=== PATIENT | female | born 1965 | race Caucasian/White ===

== ENCOUNTER → 2020-04-01 | Outpatient (CLI) | payer BC | END | disposition home or self-care (01) | LOC: CFH 07:18 → EDSTATUS 07:30 | PROVIDERS: ATTEND Nurse Practitioner Family | DX: Z12.31 Encounter for screening mammogram for malignant neoplasm of breast (principal) | CPT/HCPCS: 77063; 77067 ==

== ENCOUNTER 2020-04-21 01:27 | Emergency (ER) | payer BC, MEDICAID ==
[~2020-04-21] VITALS: Ht 162.6 cm; Wt 51.9 kg
[2020-04-21 02:12] LABS: BASOPHILS # (AUTO) 0.07 x10^3/uL (0-0.1); BASOPHILS % (AUTO) 1 % (0-1); EOSINOPHILS # (AUTO) 0.16 x10^3/uL (0-0.4); EOSINOPHILS % (AUTO) 2 % (1-7); LYMPHOCYTES # (AUTO) 1.08 x10^3/uL (1-3.4); LYMPHOCYTES % (AUTO) 11 % (22-44); MD NO; MEAN CORPUSCULAR HEMOGLOBIN 30.9 pg (27.0-34.8); MEAN CORPUSCULAR HGB CONC 32.8 g/dL (32.4-35.8); MEAN CORPUSCULAR VOLUME 94.4 fL (80-100); MEAN PLATELET VOLUME 7.2 fL (7.4-10.4); MONOCYTES # (AUTO) 0.59 x10^3/uL (0.2-0.8); MONOCYTES % (AUTO) 6 % (2-9); NEUTROPHILS % (AUTO) 81 % (42-75); PLATELET COUNT 319 x10^3/uL (130-400); RED BLOOD COUNT 3.73 x10^6/uL (3.82-5.3); RED CELL DISTRIBUTION WIDTH 14.8 % (9.6-15.2)
[2020-04-21 02:21] LABS: INTERNATIONAL NORMALIZED RATIO 0.93 (0.93-1.1); PROTHROMBIN TIME 9.8 Seconds (9.6-11.5)
[2020-04-21 02:24] LABS: ALANINE AMINOTRANSFERASE 30 U/L (12-78); ALBUMIN 3.1 g/dL (3.4-5.0); ANION GAP 7 mmol/L (5-15); CALCIUM 8.6 mg/dL (8.5-10.1); CHLORIDE 114 mmol/L (98-107); CREATININE 0.91 mg/dL (0.55-1.02)
[2020-04-21 02:26] LABS: ALKALINE PHOSPHATASE 72 U/L (45-117); BILIRUBIN,TOTAL 0.1 mg/dL (0.2-1.0); TOTAL PROTEIN 5.8 g/dL (6.4-8.2)
--- NOTE | 2020-04-21 02:53 | NUR ---
PT UP TO BATHROOM WITH STEADY GAIT. SCANT AMOUNT OF BRIGHT RED BLOOD ON TOILET PAPER. PT DENIES N/V/D.
[2020-04-21 02:54] VITALS: BP 100/68
== END 2020-04-21 03:35 ==
LOC: ED 01:41
DX: K92.1 Melena (principal); I51.7 Cardiomegaly; Z87.891 Personal history of nicotine dependence
CPT/HCPCS: 36415; 80053; 85025; 85610; 86850; 86900; 93005; 99284

== ENCOUNTER 2020-05-02 08:55 | Emergency (ER) | payer BC, MEDICAID ==
[~2020-05-02] VITALS: Ht 162.6 cm; Wt 52.5 kg
[2020-05-02] MEDS ORDERED: HYDR50TA99 PO (09:11)
[2020-05-02] MEDS ORDERED: ESCI20TA PO (09:11)
--- NOTE | 2020-05-02 09:11 | NUR ---
54 Y/O FEMALE BIB AMBULANCE WITH C/O N/V PER PT "I WENT ON A WALK AND THEN GOT HOME AND WAS SWEATING. I WENT TO THE BATHROOM AND HAD DIARRHEA. I ALSO THREW UP AND FELT LIKE I WAS GOING TO PASS OUT. THIS HAS HAPPEND BEFORE. I WAS SCARED AND I CALLED. THE LAST TIME I ENDED UP IN THE HOSPITAL FOR A MONTH AND A HALF. BUT THEY ALSO SAID IT WAS FROM ALCOHOL. I HAVEN'T THROWN UP OR HAD DIARRHEA SINCE." PT PLACED ON CONT PULSE OX,NIBP. NO C/O CP, SOB, TRAUMA, SYNCOPE. PER REPORT, PIV ESTABLISHED. 250 ML NS AND 4MG ZOFRAN ADMINISTERED. NAD.
[2020-05-02 10:07] LABS: ALANINE AMINOTRANSFERASE 41 U/L (12-78); ALBUMIN 3.8 g/dL (3.4-5.0); CALCIUM 9.2 mg/dL (8.5-10.1); CREATININE 0.87 mg/dL (0.55-1.02)
[2020-05-02 10:11] LABS: BASOPHILS # (AUTO) 0.03 x10^3/uL (0-0.1); BASOPHILS % (AUTO) 0 % (0-1); EOSINOPHILS # (AUTO) 0.12 x10^3/uL (0-0.4); EOSINOPHILS % (AUTO) 2 % (1-7); LYMPHOCYTES # (AUTO) 0.96 x10^3/uL (1-3.4); LYMPHOCYTES % (AUTO) 12 % (22-44); MD NO; MEAN CORPUSCULAR HEMOGLOBIN 31.3 pg (27.0-34.8); MEAN CORPUSCULAR HGB CONC 33.4 g/dL (32.4-35.8); MEAN CORPUSCULAR VOLUME 93.7 fL (80-100); MEAN PLATELET VOLUME 7.4 fL (7.4-10.4); MONOCYTES # (AUTO) 0.45 x10^3/uL (0.2-0.8); MONOCYTES % (AUTO) 6 % (2-9); NEUTROPHILS % (AUTO) 80 % (42-75); PLATELET COUNT 412 x10^3/uL (130-400); RED BLOOD COUNT 4.23 x10^6/uL (3.82-5.3); RED CELL DISTRIBUTION WIDTH 14.7 % (9.6-15.2)
[2020-05-02 10:18] LABS: ALKALINE PHOSPHATASE 49 U/L (45-117); BILIRUBIN,TOTAL 0.3 mg/dL (0.2-1.0); TOTAL PROTEIN 7.2 g/dL (6.4-8.2)
[2020-05-02 10:19] LABS: ANION GAP 6 mmol/L (5-15); CHLORIDE 107 mmol/L (98-107)
--- NOTE | 2020-05-02 11:18 | NUR ---
PT AMBULATORY WITH STEADY GAIT TO BATHROOM.
--- NOTE | 2020-05-02 11:27 | NUR ---
Patient/Caregiver given discharge instructions and they have confirmed that they understand the instructions. Patient ambulatory with steady gait. PT LEFT WITH ALL PERSONAL BELONGINGS.
[2020-05-02 11:28] VITALS: BP 108/70
== END 2020-05-02 11:30 | disposition home or self-care (01) ==
LOC: ED 10:08
DX: R11.2 Nausea with vomiting, unspecified (principal); R19.7 Diarrhea, unspecified; R10.9 Unspecified abdominal pain; R42 Dizziness and giddiness
CPT/HCPCS: 36415; 74021; 80053; 85025; 99284

== ENCOUNTER 2020-06-08 20:44 | Emergency (ER) | payer BC, MEDICAID ==
[~2020-06-08] VITALS: Ht 172.7 cm; Wt 68.2 kg
[~2020-06-08 20:44] MED LIST: ESCI20TA PO; HYDR50TA99 PO
--- NOTE | 2020-06-08 22:02 | NUR ---
PT. ABILIO FROM LOBBY TO ED ROOM 2 AT THIS TIME.
--- NOTE | 2020-06-08 22:12 | NUR ---
RICARDO (FATHER) WOULD LIKE CALL FOR DISPO.
[2020-06-08 22:53] LABS: BASOPHILS # (AUTO) 0.03 x10^3/uL (0-0.1); BASOPHILS % (AUTO) 1 % (0-1); EOSINOPHILS # (AUTO) 0.21 x10^3/uL (0-0.4); EOSINOPHILS % (AUTO) 4 % (1-7); LYMPHOCYTES # (AUTO) 1.64 x10^3/uL (1-3.4); LYMPHOCYTES % (AUTO) 35 % (22-44); MD NO; MEAN CORPUSCULAR HEMOGLOBIN 31.3 pg (27.0-34.8); MEAN CORPUSCULAR HGB CONC 33.3 g/dL (32.4-35.8); MEAN CORPUSCULAR VOLUME 93.9 fL (80-100); MEAN PLATELET VOLUME 6.9 fL (7.4-10.4); MONOCYTES # (AUTO) 0.52 x10^3/uL (0.2-0.8); MONOCYTES % (AUTO) 11 % (2-9); NEUTROPHILS # (AUTO) 2.36 x10^3/uL (1.8-6.8); NEUTROPHILS % (AUTO) 49 % (42-75); PLATELET COUNT 341 x10^3/uL (130-400); RED BLOOD COUNT 4.17 x10^6/uL (3.82-5.3); RED CELL DISTRIBUTION WIDTH 14.7 % (9.6-15.2)
[2020-06-08 22:58] LABS: ALANINE AMINOTRANSFERASE 36 U/L (12-78); ALBUMIN 2.9 g/dL (3.4-5.0); ANION GAP 5 mmol/L (5-15); CALCIUM 7.9 mg/dL (8.5-10.1); CHLORIDE 112 mmol/L (98-107); CREATININE 0.64 mg/dL (0.55-1.02)
[2020-06-08 23:01] LABS: ALKALINE PHOSPHATASE 68 U/L (45-117); BILIRUBIN,TOTAL 0.2 mg/dL (0.2-1.0); TOTAL PROTEIN 6.2 g/dL (6.4-8.2)
[2020-06-08 23:23] LABS: MICROSCOPIC NOT IND
[2020-06-08 23:53] VITALS: BP 106/68
== END 2020-06-09 00:06 | disposition home or self-care (01) ==
LOC: ED 23:00
DX: F10.120 Alcohol abuse with intoxication, uncomplicated (principal); Y90.9 Presence of alcohol in blood, level not specified
CPT/HCPCS: 36415; 80053; 81003; 85025; 99283

== ENCOUNTER 2020-06-10 07:26 | Emergency (ER) | payer BC, MEDICAID ==
[~2020-06-10] VITALS: Ht 162.6 cm; Wt 58.3 kg
[2020-06-10 07:29] VITALS: BP 117/93
--- NOTE | 2020-06-10 07:50 | NUR ---
PATIENT COMES IN TODAY WITH CHIEF C/O ARGUELLO. PATIENT STATES SHE FELL SATURDAY AND HAS HAD A HAD EVER SINCE, BUT ARGUELLO IS WORSE TODAY. PATIENT REPORTS LAST DRINK THIS MORNING AROUND 0400. 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
[2020-06-10] MEDS ORDERED: LORazepam 1MG TABLET PO ONE (08:00)
[2020-06-10] MEDS ORDERED: LORazepam 1MG TABLET ONE (08:16)
--- NOTE | 2020-06-10 08:19 | NUR ---
PATIENT TO CT.
--- NOTE | 2020-06-10 08:34 | NUR ---
STEADY AMBULATION TO BATHROOM. BACK RESTING IN BED. ER WILLY REBOLLEDO AT [facility] TO DISCUSS POC.
--- NOTE | 2020-06-10 08:35 | NUR ---
DC INSTRUCTIONS REVIEWED
== END 2020-06-10 08:51 | disposition home or self-care (01) ==
LOC: ED 08:09
DX: F10.129 Alcohol abuse with intoxication, unspecified (principal); R51 Headache; W01.0XXA Fall on same level from slipping, tripping and stumbling without subsequent striking against object, initial encounter; Y93.89 Activity, other specified; Y92.89 Other specified places as the place of occurrence of the external cause; Y99.8 Other external cause status; Y90.9 Presence of alcohol in blood, level not specified
CPT/HCPCS: 70450; 99284

== ENCOUNTER 2020-06-15 05:08 | Emergency (ER) | payer BC, MEDICAID ==
[~2020-06-15] VITALS: Ht 162.6 cm; Wt 56.8 kg
[2020-06-15] MEDS ORDERED: LORazepam 1MG TABLET PO ONE (05:30)
[2020-06-15] MEDS ORDERED: ONDANSETRON ODT 4 MG ONE (05:48)
[2020-06-15] MEDS ORDERED: LORazepam 1MG TABLET ONE (05:48)
[2020-06-15] MEDS ORDERED: ONDANSETRON ODT 4 MG PO ONE (06:00)
[2020-06-15 06:04] LABS: BASOPHILS # (AUTO) 0.04 x10^3/uL (0-0.1); BASOPHILS % (AUTO) 1 % (0-1); EOSINOPHILS # (AUTO) 0.08 x10^3/uL (0-0.4); EOSINOPHILS % (AUTO) 2 % (1-7); LYMPHOCYTES # (AUTO) 0.86 x10^3/uL (1-3.4); LYMPHOCYTES % (AUTO) 17 % (22-44); MD NO; MEAN CORPUSCULAR HEMOGLOBIN 31.2 pg (27.0-34.8); MEAN CORPUSCULAR HGB CONC 33.2 g/dL (32.4-35.8); MEAN CORPUSCULAR VOLUME 93.9 fL (80-100); MONOCYTES # (AUTO) 0.39 x10^3/uL (0.2-0.8); MONOCYTES % (AUTO) 8 % (2-9); NEUTROPHILS # (AUTO) 3.62 x10^3/uL (1.8-6.8); NEUTROPHILS % (AUTO) 73 % (42-75); PLATELET COUNT 296 x10^3/uL (130-400); RED BLOOD COUNT 4.16 x10^6/uL (3.82-5.3); RED CELL DISTRIBUTION WIDTH 14.6 % (9.6-15.2)
[2020-06-15 06:16] LABS: ALBUMIN 3.2 g/dL (3.4-5.0); ANION GAP 10 mmol/L (5-15); CALCIUM 8.4 mg/dL (8.5-10.1); CHLORIDE 108 mmol/L (98-107); CREATININE 0.46 mg/dL (0.55-1.02)
--- NOTE | 2020-06-15 06:16 | NUR ---
PT MEDICATED FOR NAUSEA AND ANXIETY. VSS. WAITING FOR LABS TO RESULT. CALL LIGHT IN REACH
--- NOTE | 2020-06-15 06:32 | NUR ---
ASSITED PT TO BEDSIDE COMMODE. PT BACK TO BED. VSS. PT HAS NO OTHER NEEDS AT THIS TIME. CALL LIGHT IN REACH
--- NOTE | 2020-06-15 06:48 | NUR ---
REPORT TO SARA KEY
[2020-06-15 07:40] VITALS: BP 113/72
--- NOTE | 2020-06-15 07:41 | NUR ---
ASSUMED CARE. PT STATES SHE FEELS BETTER SINCE MEDICATED BUT DOES NOTE TO HAVE HAND TREMBLES WHEN SIGNING DISCHARGE. PT STATES HER DAD WILL GIVE HER A RIDE HOME.
== END 2020-06-15 07:59 | disposition home or self-care (01) ==
LOC: ED 05:35
DX: F10.239 Alcohol dependence with withdrawal, unspecified (principal); R45.4 Irritability and anger; R06.02 Shortness of breath; F41.9 Anxiety disorder, unspecified; I10 Essential (primary) hypertension; Y90.0 Blood alcohol level of less than 20 mg/100 ml
CPT/HCPCS: 36415; 80048; 82040; 85025; 99283; Q0162

== ENCOUNTER 2020-12-22 11:16 | Emergency (ER) | payer MEDICAID ==
[~2020-12-22] VITALS: Ht 162.6 cm; Wt 52.0 kg
[~2020-12-22 11:16] MED LIST changes: -ESCI20TA PO; +ESCI20TA8 PO
--- NOTE | 2020-12-22 11:21 | NUR ---
ASSUMED CARE. PATIENT BIB EMS FOR C/O DIZZY. DENIES CP AT THIS TIME, KAMINI N/V. PATIENT DONATED BLOOD THIS AM AROUND 0900 AND SAID SHE DIDN'T EAT AFTER. SAID SHE WAS SHOPPING AND FELT LIKE SHE WAS GOING TO PASS OUT. HAS DONATED BLOOD PREVIOUSLY BUT NEVER FELT THIS WAY. VSS UPON ARRIVAL. NO CARDIAC HX. HX OF ANXIETY AND TAKES LEXAPRO DAILY. PATIENT AOX4. AMBULATORY WITHOUT ASSIST TO THE BATHROOM. PROVIDED UA.
--- NOTE | 2020-12-22 11:29 | NUR ---
PT RECEIVED 250ML NS IVF CONTRACT DRIVER.
--- NOTE | 2020-12-22 11:35 | NUR ---
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 RESIDENT AT BEDSIDE TO DO ASSESSMENT
--- NOTE | 2020-12-22 11:55 | NUR ---
RECEIVED REPORT FROM AALIYAH KEY. ASSUMING CARE AT THIS TIME.
[2020-12-22 12:19] LABS: BASOPHILS % (AUTO) 1 % (0-1); EOSINOPHILS % (AUTO) 2 % (1-7); LYMPHOCYTES % (AUTO) 19 % (22-44); MEAN CORPUSCULAR HGB CONC 33.8 g/dL (32.4-35.8); MONOCYTES % (AUTO) 8 % (2-9); NEUTROPHILS % (AUTO) 71 % (42-75); PLATELET COUNT 368 x10^3/uL (130-400); RED BLOOD COUNT 4.12 x10^6/uL (3.82-5.3)
[2020-12-22 12:21] LABS: MD NO
--- NOTE | 2020-12-22 12:22 | NUR ---
IVF RUNNING PER DEC. PT ATE FOOD THAT WAS PROVIDED.
[2020-12-22 12:28] LABS: ALBUMIN 3.8 g/dL (3.4-5.0); ANION GAP 7 mmol/L (5-15); CALCIUM 8.5 mg/dL (8.5-10.1); CHLORIDE 101 mmol/L (98-107)
[2020-12-22] MEDS ORDERED: SODIUM CHLORIDE 0.9% 1,000ML IVBOLUS ONE (12:30)
[2020-12-22 12:33] LABS: CREATININE 0.74 mg/dL (0.55-1.02); TROPONIN I < 0.015 ng/mL (0.000-0.045)
[2020-12-22 13:43] VITALS: BP 99/63
== END 2020-12-22 14:20 | disposition home or self-care (01) ==
LOC: ED 14:05
DX: R55 Syncope and collapse (principal); R07.89 Other chest pain; R42 Dizziness and giddiness; I10 Essential (primary) hypertension; R53.1 Weakness; R10.9 Unspecified abdominal pain
CPT/HCPCS: 36415; 80048; 82040; 84484; 85025; 93005; 96360; 99284; J7030

== ENCOUNTER 2021-07-04 11:15 | Emergency (ER) | payer MEDICAID ==
[~2021-07-04] VITALS: Ht 162.6 cm; Wt 57.2 kg
[2021-07-04 11:26] VITALS: BP 110/79
[2021-07-04 12:57] LABS: BASOPHILS % (AUTO) 1 % (0-1); EOSINOPHILS % (AUTO) 0 % (1-7); LYMPHOCYTES % (AUTO) 30 % (22-44); MEAN CORPUSCULAR HEMOGLOBIN 29.8 pg (27.0-34.8); MEAN CORPUSCULAR HGB CONC 33.8 g/dL (32.4-35.8); MEAN PLATELET VOLUME 6.9 fL (7.4-10.4); MONOCYTES % (AUTO) 6 % (2-9); NEUTROPHILS % (AUTO) 63 % (42-75); PLATELET COUNT 357 x10^3/uL (130-400); RED CELL DISTRIBUTION WIDTH 18.3 % (9.6-15.2)
[2021-07-04 13:07] LABS: ALANINE AMINOTRANSFERASE 95 U/L (12-78); ALBUMIN 3.7 g/dL (3.4-5.0); ANION GAP 8 mmol/L (5-15); CALCIUM 7.9 mg/dL (8.5-10.1); CHLORIDE 109 mmol/L (98-107); CREATININE 0.57 mg/dL (0.55-1.02)
[2021-07-04 13:09] LABS: ALKALINE PHOSPHATASE 63 U/L (45-117); BILIRUBIN,TOTAL 0.3 mg/dL (0.2-1.0); TOTAL PROTEIN 7.1 g/dL (6.4-8.2)
--- NOTE | 2021-07-04 14:47 | NUR ---
NA X [id number]
--- NOTE | 2021-07-04 15:45 | NUR ---
TASK RN: NO ANSWER X2 FROM LOBBY AT THIS TIME
--- NOTE | 2021-07-04 16:03 | NUR ---
TASK RN: NO ANSWERX3 FROM LOBBY AT THIS TIME
== END 2021-07-04 16:15 | disposition left against medical advice (07) ==
LOC: ED 11:20
DX: S09.8XXA Other specified injuries of head, initial encounter (principal); R07.89 Other chest pain; F10.10 Alcohol abuse, uncomplicated; X58.XXXA Exposure to other specified factors, initial encounter; Y93.89 Activity, other specified; Y92.89 Other specified places as the place of occurrence of the external cause; Y99.8 Other external cause status; Y90.9 Presence of alcohol in blood, level not specified
CPT/HCPCS: 36415; 70450; 71045; 80053; 80320; 85025; 99285; G0480